=== PATIENT | female | born 2000 | race Caucasian/White ===

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

== ENCOUNTER 2020-06-12 18:19 | Emergency (ER) | payer OTHER, BC ==
[~2020-06-12] VITALS: Ht 160 cm; Wt 54.4 kg
[~2020-06-12 18:19] MED LIST: ONDANSETRON ODT8 MG PO; TESSALON PERLE100 MG PO
[2020-06-12] MEDS ORDERED: ACETAMINOPHEN500 MG PO (19:36)
[2020-06-12] MEDS ORDERED: IBUPROFEN IB200 MG PO (19:36)
[2020-06-12 20:35] VITALS: BP 120/62
== END 2020-06-12 20:10 | disposition home or self-care (01) ==
LOC: FSED 18:30
DX: S00.83XA Contusion of other part of head, initial encounter (principal); R51.9 Headache, unspecified; W01.198A Fall on same level from slipping, tripping and stumbling with subsequent striking against other object, initial encounter; Y92.008 Other place in unspecified non-institutional (private) residence as the place of occurrence of the external cause
CPT/HCPCS: 70450; 72125; 99283